=== PATIENT | male | born 1985 | race Caucasian/White ===

== ENCOUNTER 2018-02-20 16:46 | Emergency (ER) | payer SELFPAY ==
[2018-02-20] MEDS ORDERED: Doxycycline 100 MG CAP ONE (17:16)
[2018-02-20] MEDS ORDERED: Lidocaine 1% 20 ML MDV ONE (17:16)
[2018-02-20] MEDS ORDERED: cefTRIAXone\\ROCEPHIN 250 MG VIAL ONE (17:16)
== END 2018-02-20 17:30 | disposition home or self-care (01) ==
LOC: MADERS 16:46
DX: B37.49 Other urogenital candidiasis (principal); A64 Unspecified sexually transmitted disease; Z87.891 Personal history of nicotine dependence
CPT/HCPCS: 96372; J0696; J2001